=== PATIENT | male | born 1975 | race Caucasian/White ===

== ENCOUNTER 2020-01-13 11:34 | Inpatient (IN) | payer MEDICARE, MEDICAID ==
[~2020-01-13] VITALS: Ht 193 cm; Wt 91.3 kg
--- NOTE | 2020-01-13 12:59 | NUR ---
Patient to room 335 by wheelchair from admissions. Nurse oriented patient to room, bed and location. Patient A&Ox3. Reporting pain in shoulder. Requesting pain medication and wanting to eat. Assessment charted. Patient walked from wheelchair to bed independently. Fall precautions in place. No further needs expressed from patient. Call light within reach
[2020-01-13 14:14] VITALS: BP 106/73; PULSE 100; TEMP 98.9
--- NOTE | 2020-01-13 17:41 | NUR ---
Patient worked with PT, OT, and ST and tolerated well. Right arm in sling and incision site CDI. Patient had complaints of pain in right arm and pain medication given when requested. No further needs expressed from patient. Call light within reach. Bed alarm on and fall precautions in place.
--- NOTE | 2020-01-13 19:30 | NUR ---
PATIENT RESTING IN BED DURING CHANGE OF SHIFT REPORT FROM DAY SHIFT NURSEDENVER. BED ALARM ON.
--- NOTE | 2020-01-13 20:00 | NUR ---
RUE IN SLING AND NONWEIGHT BEARING TO RUE, HAND FIRE FIGHTERS DISPATCHER SLIGHT WEAKER THAN LEFT, DENIES NUMBNESS/TINGLING TO EXTREMITIES.
--- NOTE | 2020-01-13 22:00 | NUR ---
PATIENT WANTING A NICOTINE PATCH, INFORMED PATIENT THERE IS NO ORDER FOR PATCH AND WILL LET DOCTOR KNOW OF HIS REQUEST FOR NICOTINE PATCH. BED ALARM ON.
--- NOTE | 2020-01-14 | NUR ---
PATIENT SLEEPING, OBSERVED BREATHING NONLABORED AND EVEN. BED ALARM ON.
--- NOTE | 2020-01-14 04:00 | NUR ---
PATIENT REFUSED TO WEAR SCDS TO BLE. BED ALARM ON.
[2020-01-14 05:06] VITALS: BP 120/56; PULSE 81; TEMP 97.6
--- NOTE | 2020-01-14 07:29 | NUR ---
PATIENT RESTING IN BED DURING CHANGE OF SHIFT REPORT GIVEN TO DAY SHIFT NURSEGRICELDA. BED ALARM ON.
--- NOTE | 2020-01-14 10:00 | NUR ---
Patient resting in bed, having just arrived back from therapy. Patient is alert and oriented, answers questions appropriately. Right arm in sling, dressing to right shoulder. Patient denies pain or needs at this time, call light within reach.
--- NOTE | 2020-01-14 15:14 | NUR ---
Jr. Java Developer met with patient to complete initial intake as he is new to [facility]. SW also provided copy of team conference notes and advised discharge date was set for Sunday. Patient mentioned wanting to maybe go home this weekend as he thinks maybe someone else needs to be here more than he does. SW spoke with patient about scheduling a family meeting for Sunday and patient states this is fine. Patient lives in [place] with his mom Anita (ph#[phone]) and could not remember who his primary care physician is. Patient doesn't have a DPOA-HC but reports his mom does all his paperwork and helps him with decision making. Patient does not use any DME and was independent with ADLS prior to his fall. SW addressed drug and alcohol usage with patient. Patient states he mostly drinks whiskey, rarely beer and has been drinking to "keep the cardona away". 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 Patient advised he has received treatment from [facility] before but is not interested in any treatment or resources at this time. Patient states he can quit about anytime. SW dicussed scheduling outpatient Speech Therapy upon discharge. Patient advised SW would need to talk with his mom about where to schedule this. SW contacted patient's mom, Anita to discuss discharge planning. JOSEPH scheduled family meeting for Sunday @ 1300. Anita reports patient's primary care physician in [place] recently retired and patient does not like the doctors in [place]. Anita would like to set up primary care in [place] for patient. JOSEPH reviewed list of primary care providers in [place] and Anita reports she will review this list and get back with JOSEPH about which one they decide on. JOSEPH discussed need for outpatient ST. Anita advised this could be scheduled at [facility]. JOSEPH will follow up on this. JOSEPH provided family meeting date and time to Taisha, [facility] Director. JOSEPH to continue to follow.
[2020-01-14 17:12] VITALS: BP 114/68; PULSE 100; TEMP 98.5
--- NOTE | 2020-01-14 18:03 | NUR ---
Patient currently resting in bed eating dinner. Patient c/o 03/19 pian in his right arm and shoulder. Administered PRN pain medication per order. Patient denies further needs at this time, call light within reach.
--- NOTE | 2020-01-15 05:50 | NUR ---
PATIENT HAS BEEN RESTING THROUGH THE NIGHT WITH NO COMPLAINTS OR NEEDS FROM THE STAFF. WILL REPORT OFF TO DAY SHIFT
[2020-01-15 05:52] VITALS: BP 106/57; PULSE 79; TEMP 98.3
[2020-01-15 15:39] VITALS: BP 104/60; PULSE 85; TEMP 97.5
--- NOTE | 2020-01-15 15:48 | NUR ---
Patient resting in bed, call light in reach and bed alarm set. Patient attended all therapies today. Denies any questions at this time.
--- NOTE | 2020-01-15 18:00 | NUR ---
Patient attended all therapies, used call light appropriatly and currently has his bed alarm set. Patient did visit with his family a couple of times throughout the day. Patient likes to get pop and cookies from the vending machine and staff and therapy assisted him with getting these items. Patient reporting pain to right shoulder and given prn Jannette and Tylenol with good effect. Discussed changing his bandage to shoulder tomorrow. Patient denied any questions at this time.
--- NOTE | 2020-01-15 23:18 | NUR ---
Received report from DELL Reza. Pt sleeping on initial entry. Pt arousable to voice. Alert and oriented. Denies any pain or discomfort at this time. SBA to BR, steady gait. Pt returned to bed. Bed alarm set. Needs met at this time. Call light within reach.
[2020-01-16 05:28] VITALS: BP 116/62; PULSE 76; TEMP 97.9
[2020-01-16 06:28] LABS: BASO # 0.1 (0.0-0.2); BASO % 0.8 % (0.0-2.0); EOS # 0.4 (0.0-0.7); EOS % 6.6 % (0-4.0); GRAN # 3.7 (1.4-6.5); GRAN % 60.5 % (42.2-75.2); HEMOGLOBIN 11.1 g/dl (13.5-18.0); LYMPH # 1.4 (1.2-3.4); LYMPH % 22.4 % (20.0-51.0); MEAN CELL VOLUME 94 fl (80.0-100.0); MEAN CORPUSCULAR HEMOGLOBIN 30 pg (27.0-31.0); MEAN CORPUSCULAR HGB CONC 32 g/dl (33.0-37.0); MEAN PLATELET VOLUME 8.5 fl (7.4-10.4); MONO # 0.6 (0.1-0.6); MONO % 9.4 % (1.7-9.3); PLATELET COUNT 467 K/mm3 (130-400); RED BLOOD COUNT 3.69 M/mm3 (4.20-5.60)
[2020-01-16 06:31] LABS: HEMATOCRIT 34.8 % (42.0-52.0)
[2020-01-16 06:48] LABS: CALCIUM 9.2 mg/dL (8.4-10.2); CREATININE, serum 0.6 (0.66-1.25); MAGNESIUM 2.3 mg/dL (1.6-2.3); POTASSIUM 4.8 mmol/L (3.4-5.0)
--- NOTE | 2020-01-16 13:21 | NUR ---
A Family Conference was conducted with pt & pt's mother, via phone. Also present was PT, OT, ST, & Warehouse Inventory Clerk. Warehouse Inventory Clerk started by explaining the purpose of the meeting. The therapists explained how pt has been functioning & making good progress. Informed them of d/c for 01/20/20 w/ recommendation for outpatient ST. Pt was not pleased & insisted he was leaving today. It was explained that there is no physician to discharge him. He stated he would just stay in his room. Mother asked a few questions, which were answered by the team.
--- NOTE | 2020-01-16 14:22 | NUR ---
Bandage to right shoulder was removed, with bloody old drainage on bandage. Area showed no new drainage or redness. Area was cleaned with Normal Saline, patted dry and and gauze/tegaderm reapplied for added protection. Patient tolerated with only minimal discomfort reported. Will continue to monitor.
[2020-01-16 15:52] VITALS: BP 105/62; PULSE 85; TEMP 99
[2020-01-16 16:43] VITALS: TEMP 98.6
--- NOTE | 2020-01-16 16:45 | NUR ---
Temp was taken and showed 99.1 earlier this afternoon. Rechecked current temp is 98.6. Patient was given tylenol to help with pain 5/10 at this time. Will continue to monitor.
--- NOTE | 2020-01-16 18:40 | NUR ---
PT REPORT RECEIVED FROM DAYSHIFT RN AT BEDSIDE. PT IS A&OX4, ABLE TO MAKE WANTS/NEEDS KNOWN, DENIES PAIN, DENIES WANTS/NEEDS AT THSI TIME. CALL LIGHT IS WITHIN REACH. WILL CONTINUE TO MONITOR.
--- NOTE | 2020-01-16 20:27 | NUR ---
PT REMAINS SITTING IN RECLINER WITH TV ON AND NO COMPLAINTS OR PAIN OR DISCOMFORT. PT REMAINS IN STABLE CONDITION AT THIS TIME AND DENIES WANTS/NEEDS. PT IS COOPERATIVE WITH CARE AND IS ABLE TO AMBULATE INDEPENDANTLY IN HIS ROOM AND TO THE RESTROOM. PT IS COMPLIANT WITH USING CALL LIGHT TO LET STAFF KNOW OF HIS WANTS/NEEDS SUCH A CUP OF ICE WATER EARLIER IN THE SHIFT. PT DRESSING REMAINS INTACT TO HIS RIGHT SHOULDER AND IS CLEAN AND DRY. WILL CONTINUE TO MONITOR.
--- NOTE | 2020-01-16 23:55 | NUR ---
PT IS CURRENTLY RESTING PEACEFULLY IN BED WITH EYES CLOSED, TV ON, NO S/S OF DISTRESS NOTED AND NO S/S OF PAIN NOTED. CALL LIGHT IS AT PT SIDE. BEDSIDE TABLE IS NOTED TO BE WITHIN REACH WITH BEVERAGE AVAILABLE. WILL CONTINUE TO MONITOR.
--- NOTE | 2020-01-17 03:20 | NUR ---
Pt RESTING IN BED WITH EYES CLOSED AND NO S/S OF DISTRESS NOTED. CALL LIGHT WITHIN REACH. WILL CONTINUE TO MONITOR.
--- NOTE | 2020-01-17 05:35 | NUR ---
Pt sitting in bed with eyes open and watching tv with call light at his side. Pt has had an uneventful night and has alternated between resting with his eyes open and eyes closed throughout the shift. Pt is in stable condition at this time. Will continue to monitor.
[2020-01-17 05:57] VITALS: BP 107/57; PULSE 76; TEMP 98.2
--- NOTE | 2020-01-17 08:00 | NUR ---
PATIENT ASSESSMENT COMPLETED. HE IS EASILY ARROUSED TO VERBAL STIMULI. HE HAS EATTEN BREAKFAST AND WAS BACK TO SLEEP. HE DENIES ANY PAIN OR NEEDS AT THIS TIME. ORAL MEDICATIONS TAKEN.
--- NOTE | 2020-01-17 09:36 | NUR ---
PATIENT SLEEPING WITHOUT SIGNS OF DISTRESS.
--- NOTE | 2020-01-17 12:09 | NUR ---
PATIENT REQUESTS PRN PAIN MEDICATION AT THIS TIME. TYLENOL AND ROXICODONE PROVIDED. ELÍAS PETERSENW IS ALSO ORDERED FOR THIS PATIENT PER HIS REQUEST.
[2020-01-17 15:21] VITALS: BP 117/64; PULSE 88; TEMP 98.6
--- NOTE | 2020-01-17 18:41 | NUR ---
PATIENT SLEEPING IN BED.
--- NOTE | 2020-01-18 03:43 | NUR ---
RESTING QUIETLY/SLEEPING. NO N/V. OXYCODONE FOR PAIN TO RT UPPER EXTREMITY. INDEPENDENT IN ROOM.
[2020-01-18 06:05] VITALS: BP 105/62; PULSE 78; TEMP 97.7
--- NOTE | 2020-01-18 07:15 | NUR ---
Report rcvd from DELL Alfaro. Pt is sleeping in bed at time of report. Pt is awakened by our entry to the room. Pt does not have a c/o pain at this time. Pain medication was given by PM RN at 0530. Pt can recieve next dose at approximately 1130. Assessement declined at this time, will try again at time of medication administration. Call light within reach. No further concerns at this time.
[2020-01-18 16:19] VITALS: BP 115/62; PULSE 78; TEMP 98.1
--- NOTE | 2020-01-18 16:51 | NUR ---
Pt walked the juan to the [employer]. Upon arrival back to room, pt states his pain is an 8/10. Medication administered. Call light within reach, no further concerns at this time.
--- NOTE | 2020-01-18 19:10 | NUR ---
PATIENT RESTING IN BED DURING CHANGE OF SHIFT REPORT FROM DAY SHIFT NURSEEDILMA. PATIENT UP INDEPENDENTLY IN ROOM/HESTER WITH NO PROBLEMS.
--- NOTE | 2020-01-18 19:26 | NUR ---
Pt had a very uneventful day. Pt was able to ambulate about the room with ease, as well as taking a walk to the vending machines. He is very independent. Pt did not complain of pain until later in the evening. Medications were administered for his pain. Report was given to DELL Orozco. Transfer of care completed.
--- NOTE | 2020-01-18 20:00 | NUR ---
PATIENT UP INDEPENDENTLY IN ROOM WITH NO PROBLEMS. SLING TO RUE IN PLACE, NO URINE OBSERVED,PATIENT UP TO BATHROOM INDEPENDENTLY. DENIES NUMBNESS/TINGLING TO EXTREMITIES. VOICES HOPES TO DISCHARGE TO HIS MOTHER'S HOME ON January. DENIES ANY OTHER NEEDS.
--- NOTE | 2020-01-19 01:26 | NUR ---
PATIENT AWAKENS WHEN DOOR TO ROOM IS OPENED BY STAFF, DENIES ANY NEEDS OR COMPLAINTS WHEN ASKED. PATIENT UP INDEPENDENTLY IN ROOM.
[2020-01-19 03:50] VITALS: BP 108/66; PULSE 75; TEMP 97.8
--- NOTE | 2020-01-19 07:17 | NUR ---
PATIENT RESTING IN BED DURING CHANGE OF SHIFT REPORT GIVEN TO DAY SHIFT NURSELILA. PATIENT UP INDEPENDENTLY IN ROOM WITH NO PROBLEMS.
--- NOTE | 2020-01-19 09:12 | NUR ---
Patient attending therapies this morning. Reported that he didn't sleep well last night. Was slow getting up to eat breakfast this AM. Reported pain to right shoulder at 8/10 and given prn Jannette. Will continue to monitor.
--- NOTE | 2020-01-19 11:32 | NUR ---
Patient resting in bed at this time, call light in reach and is independent in his room.
--- NOTE | 2020-01-19 12:37 | NUR ---
Call placed to JOSEPH Alanis wanting to know who patient wanted to use for a PCP. Annabelle placed call to patient's mother and she is thinking [place], but she will call Annabelle back to confirm.
--- NOTE | 2020-01-19 12:43 | NUR ---
JOSEPH contacted the patient's mother Anita to discuss setting up the patient's PCP. Anita states she would like the patient to be set up with Dr. Lockett with [facility] since he is taking new patients. JOSEPH informed IPR nurse.
--- NOTE | 2020-01-19 12:52 | NUR ---
Received return call from JOSEPH Alanis and she reported that patient's mother chose for patient to follow up with PCP Dr. Josh Lockett. Dr. Lockett's office was called and appointment has been set for January 26 at 8:00 AM.
--- NOTE | 2020-01-19 16:42 | NUR ---
SW met with the patient to follow up after the weekend. The patient had no questions or concerns.
[2020-01-19 17:43] VITALS: BP 105/62; PULSE 81; TEMP 99.3
--- NOTE | 2020-01-19 17:48 | NUR ---
Patient attended all therapies today. He is currently resting in bed at this time, call light in reach and is independent in his room. Patient is due to be discharged tomorrow and all appointments have been made.
[2020-01-19] MEDS ORDERED: THIAMINE 1100 MG/TAB PO (18:58)
[2020-01-19] MEDS ORDERED: TYLENOL 325MG325 MG PO (18:58)
[2020-01-19] MEDS ORDERED: FOLIC ACID 11 MG/TA1 PO (18:58)
[2020-01-19] MEDS ORDERED: ROXICODONE 55 MG/TAB PO (19:00)
--- NOTE | 2020-01-19 19:28 | NUR ---
Reported off to night nurse.
--- NOTE | 2020-01-19 19:30 | NUR ---
PATIENT RESTING IN BED DURING CHANGE OF SHIFT REPORT FROM DAY SHIFT NURSELILA. PATIENT UP INDEPENDENTLY IN ROOM, PLANS TO BE DISMISSED ON 01/19, TOMORROW.
--- NOTE | 2020-01-19 20:00 | NUR ---
DECREASED ROM/STRENGTH TO RUE D/T S/P SURGERY, WITH SLING TO RUE IN PLACE. WIGGLES RIGHT HAND FINGERS ON COMMAND, CONTINUES TO DENY NUMBNESS/TINGLING TO EXTREMITIES. PATIENT UP INDEPENDENTLY IN ROOM WITH NO PROBLEMS.
--- NOTE | 2020-01-20 01:30 | NUR ---
PATIENT SLEEPING, DOES NOT AWAKEN WHEN DOOR TO ROOM IS OPENED BY STAFF. OBSERVED BREATHING NONLABORED AND EVEN. PATIENT UP INDEPENDENTLY IN ROOM WITH NO C/O OR PROBLEMS.
[2020-01-20 06:28] VITALS: BP 100/62; PULSE 69; TEMP 97.7
--- NOTE | 2020-01-20 06:59 | NUR ---
PATIENT RESTING IN BED DURING CHANGE OF SHIFT REPORT GIVEN TO DAY SHIFT NURSELILA. PATIENT UP INDEPENDENTLY IN ROOM WITH NO PROBLEMS.
--- NOTE | 2020-01-20 13:23 | NUR ---
Patient Health Summary, Discharge Summary, and Home Meds printed and reviewed with patient and called to his mother. Stressed importance of follow up appointments. Patient was given a Rx for Jannette that he will take to the pharmacy. Belongings gathered by CA/Bhavesh including phone, frame carver spindle, clothes, shoes and misc. items. Patient walked to Emergency Room Exit Door to meet his mother. Patient denied questions.
--- NOTE | 2020-01-20 14:18 | NUR ---
The patient discharged home today, 01/[address] [facility]. Ashley with [facility] to contact the patient to set up the initial appointment. JOSEPH faxed discharge orders and ST notes. There are no additional needs at this time.
--- NOTE | 2020-01-20 14:21 | NUR ---
Discharge QIM scores were reviewed by the team. Code of 6 chosen for eating was determined by team discussion to be the most usual performance for this patient during the assessment period. Code of 6 chosen for oral hygiene was determined by team discussion to be the most usual performance for this patient during the assessment period. Code of 88 chosen for rolling left to right was determined by team discussion to be the most usual performance for this patient during the assessment period.--[place]isha [place], PD
--- NOTE | 2020-01-20 15:56 | NUR ---
Correction: The location of Follow up visit with Dr. Jay Jacobsen is at [facility], [address] [place] [id number]; [phone]. This information was communicated to Willis and his mother. The information for Dr. Jacobsen was wrong in the EMR. Will communicate this to HIM.
== END 2020-01-20 13:27 | disposition home or self-care (01) | DRG 950 ==
PROVIDERS: ADMIT Internal Medicine
DX: S06.9X9D Unspecified intracranial injury with loss of consciousness of unspecified duration, subsequent encounter (principal); S22.079D Unspecified fracture of T9-T10 vertebra, subsequent encounter for fracture with routine healing; S42.101D Fracture of unspecified part of scapula, right shoulder, subsequent encounter for fracture with routine healing; S22.49XD Multiple fractures of ribs, unspecified side, subsequent encounter for fracture with routine healing; F19.10 Other psychoactive substance abuse, uncomplicated; F17.210 Nicotine dependence, cigarettes, uncomplicated; W19.XXXD Unspecified fall, subsequent encounter; Z88.2 Allergy status to sulfonamides
CPT/HCPCS: 99222-AI; 99231-AI; 99232-AI; 99239; J1650